=== PATIENT | female | born 1975 | race Caucasian/White ===

== ENCOUNTER → 2018-09-22 14:27 | Outpatient (CLI) | payer OTHER, MEDICAID, SELFPAY ==
[2018-09-22 15:41] LABS: BUN Creatinine Ratio 18.3 (6-22); Blood Urea Nitrogen 11 mg/dL (7-17); Estimated Glomerular Filt Rate > 60.0 mL/min (>60)
== END ==
PROVIDERS: PCP Student in an Organized Health Care Education/Training Program; Visit Provider Podiatrist
DX: S90.31XA Contusion of right foot, initial encounter (principal)
CPT/HCPCS: 36415; 82565; 84520

== ENCOUNTER → 2018-10-28 13:57 | Outpatient (CLI) | payer OTHER, MEDICAID, SELFPAY ==
--- NOTE | 2018-10-28 | DI.MRI.S_ITS ---
PROCEDURE: MR ANKLE RT WO/W CON INDICATIONS: RIGHT ANKLE MASS TECHNIQUE: Noncontrast sagittal T1 spin echo and T2 fast spin echo with fat saturation, axial proton density fast spin echo and T2 fast spin echo with fat saturation, axial T1 spin echo with fat saturation, coronal T1 spin echo and T2 fast spin echo with fat saturation through the ankle/hindfoot. Post-contrast axial, coronal, and sagittal T1 spin echo with fat saturation through the ankle/hindfoot. COMPARISON: [facility], CR, XR FOOT 3+ VIEWS RIGHT, 04/08/2018, 15:27. [facility], CR, XR FOOT 3+ VIEWS RIGHT, 09/22/2018, 13:54. FINDINGS: Image quality: Excellent. Bones and joints: No suspicious osseous enhancement. No bone marrow contusions or fractures. No hindfoot coalitions. No osteochondral injuries of the talar dome. No pathologic joint effusions. A MR surface marker was placed over the dorsum of the foot in the area of current palpable clinical concern. This is located just proximal to the articulation between the base of the second metatarsal bone and the junction of the distal aspect of the first and second tarsal bones. On high-resolution fat-suppressed T2 imaging (series 6 image [id number]) a synovial protrusion can be seen extending from this joint margin cephalad and then proximally beneath the extensor tendon retinaculum along the dorsum of the midfoot at that site. This exactly correlates with the area of concern and is not associated with tenosynovitis are an underlying osseous lesion. Mild arthritic change is present at the tarsal-metatarsal junctions, but no prior trauma is found. The synovial protrusion has a longitudinal dimension of 1.3 cm, and the maximal craniocaudad dimension of 4 mm. The transverse dimension is 10 mm (best seen on series 7 image 1). The thickness is slightly greater medially than laterally. Medial structures: The posterior tibialis, flexor digitorum longus, and flexor hallucis longus tendons are intact. The posterior tibial neurovascular bundle appears normal within the tarsal tunnel, without extrinsic mass effect. The deep layer (anterior and posterior tibiotalar ligaments) and superficial layer (tibionavicular, tibiospring, and tibiocalcaneal ligaments) of the deltoid ligament appear normal. The spring ligament components (superomedial calcaneonavicular, medioplantar oblique calcaneonavicular, and inferoplantar longitudinal ligaments) are intact. Lateral structures: The anterior talofibular, calcaneofibular, and posterior talofibular ligaments appear intact. More superiorly, the anterior and posterior tibiofibular ligaments appear intact, as is the intermalleolar ligament. The tibiofibular syndesmosis is normal in width at 2 mm or less. The peroneus longus and brevis tendons demonstrate normal location and morphology. Adjacent bony peroneal tubercle and retrotrochlear prominence are normal in size. The sinus tarsi demonstrates normal fatty signal, without edema, fibrosis, or cyst formation. Visualized sinus tarsi components (cervical ligament, interosseous talocalcaneal ligament, roots of the inferior extensor retinaculum) appear normal. The calcaneonavicular and calcaneocuboid components of the bifurcate ligament appear intact. The dorsal calcaneocuboid ligament appears intact. Anterior structures: The tibialis anterior, extensor hallucis longus, and extensor digitorum longus tendons appear intact. The dorsal talonavicular ligament appears intact. Posterior and plantar structures: Achilles tendon is intact. Medial and lateral bands of the plantar fascia are of normal thickness. No abductor digiti quinti muscle atrophy to suggest Antonio neuropathy. IMPRESSION: As discussed above a MR surface marker was placed in the area palpable clinical concern over the dorsum of the foot, located above the tarsal bone area and this is associated with a visible synovial protrusion projecting from the interspace between the base of the second metatarsal bone and the more proximal junction of the distal aspect of the interface between the second and third tarsal bones. This protrusion projects beneath the extensor retinaculum, and has a maximal craniocaudad and transverse dimension of 4 x 10 mm with a longitudinal dimension of approximately 1.3-1.4 cm. No marrow space lesion or soft tissue mass is present. The structure identified is fluid filled. Dictated by: Aníbal Blood M.D. on 10/28/2018 at 16:05 Approved by: Aníbal Blood M.D. on 10/28/2018 at 16:19
== END ==
PROVIDERS: PCP Student in an Organized Health Care Education/Training Program; Visit Provider Podiatrist
DX: R22.41 Localized swelling, mass and lump, right lower limb (principal)
CPT/HCPCS: 73723; A9579

== ENCOUNTER → 2020-05-14 13:26 | Outpatient (CLI) | payer OTHER, MEDICAID, SELFPAY ==
[2020-05-14 13:51] LABS: Initial Volume 0.8 mL
[2020-05-14 14:03] LABS: Semen 30 min. Liquification? Yes
[2020-05-14 14:36] LABS: Final Volume 0.5 mL
== END ==
PROVIDERS: Specialist; PCP Student in an Organized Health Care Education/Training Program; Referring Provider Obstetrics & Gynecology; Visit Provider Obstetrics & Gynecology
DX: N97.0 Female infertility associated with anovulation (principal)
CPT/HCPCS: 58323